=== PATIENT | female | born 1975 | race Caucasian/White ===

== ENCOUNTER 2024-01-24 10:28 | Inpatient (IN) | payer MEDICAID ==
[~2024-01-24] VITALS: Ht 160 cm; Wt 93.5 kg
[2024-01-24 11:32] VITALS: BP 114/82; PULSE 106; RESP 16; TEMP 97.8; O2SAT 99
[2024-01-24] MEDS ORDERED: mag hydrox/Alum hydrox/simeth 30ml oral suspension PO PRN (13:15)
[2024-01-24] MEDS ORDERED: acetaminophen 325mg tablet PO PRN ×2 (13:15)
[2024-01-24] MEDS ORDERED: DULO-31 PO (14:06)
[2024-01-24] MEDS ORDERED: LANTUS SQ (14:06)
[2024-01-24] MEDS ORDERED: BUSP10TA11 PO (14:06)
[2024-01-24] MEDS ORDERED: ATOR10TA87 PO (14:06)
[2024-01-24] MEDS ORDERED: TIRZ10PE (14:06)
[2024-01-24] MEDS ORDERED: PROP10TA10 PO (14:06)
[2024-01-24] MEDS ORDERED: LOSA-415 PO (14:06)
[2024-01-24] MEDS ORDERED: EST1T PO (14:06)
[2024-01-24] MEDS ORDERED: AMIT50TA15 PO (14:06)
[2024-01-24] MEDS ORDERED: NITR100C6 PO (14:07)
[2024-01-24 14:30] VITALS: RESP 16; O2SAT 99
[2024-01-24] MEDS: loperamide 2mg capsule PO PRN (18:50)
[2024-01-24 20:00] VITALS: BP 150/89; PULSE 96; RESP 14; TEMP 96.9; O2SAT 98
[2024-01-24] MEDS: amitriptyline 50mg tablet PO SCH (20:54)
[2024-01-24] MEDS: busPIRone 15mg tablet PO SCH (20:54)
[2024-01-24] MEDS: nitrofuran monohydrate/nitrofuran macrocrysal 100 MG (MacroBID) capsule PO SCH (20:54)
[2024-01-24] MEDS: propranolol 10mg tablet PO SCH (20:55)
[2024-01-24] MEDS: traZODone 50mg tablet PO SCH (21:00)
[2024-01-24] MEDS ORDERED: NICOTINE POLACRILEX 2 MG LOZENGE BC PRN (22:55)
[2024-01-25 07:30] VITALS: RESP 16
[2024-01-25 08:00] VITALS: BP 138/87; PULSE 83; RESP 16; TEMP 97.8; O2SAT 98
[2024-01-25] MEDS: pneumococcal 23-VAL P-sac vacc 25 mcg/0.5ml vial IMVAC ONE (08:01)
[2024-01-25] MEDS: nicotine 7mg patch - 24hr TD SCH (08:03)
[2024-01-25] MEDS: duloxetine 30mg CAPSULE.DR PO SCH (08:03)
[2024-01-25] MEDS: atorvastatin 10mg tablet PO SCH (08:04)
[2024-01-25] MEDS: losartan 25mg tablet PO SCH (08:05)
[2024-01-25 09:18] LABS: HEMOGLOBIN A1C 5.7 % (4.5-6.2)
[2024-01-25 09:24] LABS: CHOL/HDL RATIO 2.8 (0.00-4.99); CHOLESTEROL 191 MG/DL (0-200); HDL CHOLESTEROL 69 MG/DL (35-60); LDL CHOLESTEROL 107 MG/DL (50-100); TRIGLYCERIDES 117 MG/DL (20-135)
[2024-01-25] MEDS: insulin glargine (Lantus) pen - multi-dose SQ SCH (09:36)
[2024-01-25] MEDS ORDERED: dextrose 50%-water 50ml dispensing syringe IV PRN ×2 (18:35)
[2024-01-25] MEDS ORDERED: glucagon, human recombinant 1mg kit SUBCUT PRN (18:35)
[2024-01-25] MEDS ORDERED: DEXTROSE 15 GM of carb/4 tabs (each vial/BOTTLE has 4 tablets) PO PRN ×2 (18:35)
[2024-01-25 19:00] VITALS: RESP 16; O2SAT 98
[2024-01-25 20:00] VITALS: BP 134/81; PULSE 89; RESP 16; TEMP 97.9; O2SAT 98
[2024-01-25] MEDS: traZODone 50mg tablet PO SCH (20:49)
[2024-01-25] MEDS: aripiprazole 5mg tablet PO SCH (20:50)
[2024-01-25] MEDS: INSULIN LISPRO 100 UNIT/ML INSULN.PEN MULTI-DOSE SQ SCH (21:00)
[2024-01-26 07:30] VITALS: BP 139/79; PULSE 78; RESP 18; TEMP 97.7; O2SAT 97
[2024-01-26] MEDS: BUPROPION HCL 150MG XL 24 HR 150 MG TAB PO SCH (07:33)
[2024-01-26 07:51] VITALS: RESP 18; O2SAT 97
[2024-01-26] MEDS: magnesium hydroxide 30ml (MOM) UD suspension PO PRN (08:00)
[2024-01-26 19:00] VITALS: RESP 14; O2SAT 98
[2024-01-26 20:00] VITALS: BP 145/75; PULSE 79; RESP 14; TEMP 98.5; O2SAT 98
[2024-01-27 07:00] VITALS: RESP 16; O2SAT 95
[2024-01-27 08:00] VITALS: BP 115/72; PULSE 79; RESP 16; TEMP 97.8; O2SAT 95
[2024-01-27] MEDS: INSULIN LISPRO 100 UNIT/ML INSULN.PEN MULTI-DOSE SQ SCH (08:00)
[2024-01-27 09:04] VITALS: BP_SYST 115; PULSE 79
[2024-01-27] MEDS ORDERED: BUPR-94 PO (10:41)
[2024-01-27] MEDS ORDERED: BUS15T PO (10:41)
[2024-01-27] MEDS ORDERED: TRAZ-251 PO (10:41)
[2024-01-27] MEDS ORDERED: ARIP5TAB53 PO (10:41)
== END 2024-01-27 15:20 | disposition home or self-care (01) | DRG 751 ==
LOC: ADULT MH 11:32 → UNDOADMIN 12:09 → ADULT MH 12:09
PROVIDERS: ADMIT Psychiatry & Neurology Psychiatry; ATTEND Psychiatry & Neurology Psychiatry
PROC: GZHZZZZ Group Psychotherapy (ICD-10-PCS; principal; 2024-01-25)
DX: F33.2 Major depressive disorder, recurrent severe without psychotic features (principal); E11.9 Type 2 diabetes mellitus without complications; R45.851 Suicidal ideations; F41.1 Generalized anxiety disorder; G47.00 Insomnia, unspecified; F43.10 Post-traumatic stress disorder, unspecified; Z79.899 Other long term (current) drug therapy; Z63.4 Disappearance and death of family member; Z91.51 Personal history of suicidal behavior
CPT/HCPCS: 36415; 80061; 82948; 83036; 84132; 84443; 87081; 90732; A6250; J1815